=== PATIENT | male | born 1990 | race Caucasian/White ===

== ENCOUNTER → 2020-11-23 | Outpatient (CLI) | payer OTHER | LOC: MHCPAIN 07:53 | DX: M54.2 Cervicalgia (principal); M79.18 Myalgia, other site; R51.9 Headache, unspecified; G89.29 Other chronic pain | CPT/HCPCS: G0463 ==

== ENCOUNTER → 2020-12-26 | Outpatient (CLI) | payer OTHER | LOC: MHCPAIN 09:08 | DX: M54.2 Cervicalgia (principal); M79.18 Myalgia, other site; R51.9 Headache, unspecified; G89.29 Other chronic pain | CPT/HCPCS: G0463; J1040 ==